=== PATIENT | male | born 1945 | race Caucasian/White ===

== ENCOUNTER 2017-12-23 09:05 | Outpatient (CLI) | payer OTHER | END 2017-12-23 20:10 | disposition home or self-care (01) | LOC: SUS 09:05 | PROVIDERS: ATTEND Internal Medicine | DX: I65.22 Occlusion and stenosis of left carotid artery (principal); I25.10 Atherosclerotic heart disease of native coronary artery without angina pectoris; H53.9 Unspecified visual disturbance | CPT/HCPCS: 93880 ==